=== PATIENT | male | born 1940 | race Caucasian/White ===

== ENCOUNTER 2017-06-25 13:07 | Emergency (ER) | payer MEDICARE ==
[2017-06-25 13:38] VITALS: BP 179/88; PULSE 60; RESP 16; TEMP 98.8
--- NOTE | 2017-06-25 14:55 | ED ---
General Adult HPI - General Chief complaint: Extremity Problem,Nontraumatic Stated complaint: pain in legs/groin Time Seen by Provider: 06/25/17 14:06 Source: patient, family, RN notes reviewed, old records reviewed Mode of arrival: wheelchair Limitations: no limitations - History of Present Illness Initial comments: This is a 76-year-old male the ER for evaluation of leg pain. Patient's concerned that he may of DVT. Patient complaining of right leg pain. No injury. No recent trauma or surgery. Patient states he is to recently thinks it may have had a DVT. He had severe pain and cramping is likely 2 nights ago, the patient has not returned and is currently without pain or complaints this time. No traumatic injury, patient's able to ambulate without difficulty - Related Data Home Medications Medication Instructions Recorded Confirmed Warfarin [Coumadin] 5 mg PO SUSA 11/26/13 06/25/17 Sotalol HCl [Sotalol] 80 mg PO DAILY 10/29/15 06/25/17 Warfarin Sodium [Warfarin Sodium] 3 mg PO MOTUWE 10/29/15 06/25/17 Warfarin Sodium [Warfarin Sodium] 4 mg PO THFR 10/29/15 06/25/17 Allergies Allergy/AdvReac Type Severity Reaction Status Date / Time No Known Allergies Allergy Verified 06/25/17 14:08 Review of Systems ROS Statement: Those systems with pertinent positive or pertinent negative responses have been documented in the HPI. ROS Other: All systems not noted in ROS Statement are negative. Past Medical History Past Medical History: Atrial Fibrillation Additional Past Medical History / Comment(s): Afib RVR in past-to have cardiac ablation at [facility] soon, recent hematuria-had cystoscopy at [facility] 10/26/15 and pt states his prostate "was worked on", had woodall catheter removed today in Dr. Adams's office, nephrolithiasis History of Any Multi-Drug Resistant Organisms: None Reported Past Surgical History: Ablation, Hernia Repair, Prostate Surgery Additional Past Surgical History / Comment(s): 10/26/15 Cystoscopy-prostate "was worked on". TURP 1998, bilateral inguinal hernia repairs, EGD/colonoscopy Past Anesthesia/Blood Transfusion Reactions: No Reported Reaction Past Psychological History: No Psychological Hx Reported Smoking Status: Former smoker Past Alcohol Use History: None Reported Past Drug Use History: None Reported - Past Family History Father Additional Family Medical History / Comment(s): Father at age 50 yrs of ruptured brain aneurysm. Mother Family Medical History: Cancer Additional Family Medical History / Comment(s): Mother at age 55yrs of lung cancer. She was a smoker. General Exam Limitations: no limitations General appearance: alert, in no apparent distress Head exam: Present: atraumatic, normocephalic, normal inspection Eye exam: Present: normal appearance, PERRL, EOMI. Absent: scleral icterus, conjunctival injection, periorbital swelling ENT exam: Present: normal exam, mucous membranes moist Neck exam: Present: normal inspection. Absent: tenderness, meningismus, lymphadenopathy Respiratory exam: Present: normal lung sounds bilaterally. Absent: respiratory distress, wheezes, rales, rhonchi, stridor Cardiovascular Exam: Present: regular rate, normal rhythm, normal heart sounds. Absent: systolic murmur, diastolic murmur, rubs, gallop, clicks GI/Abdominal exam: Present: soft, normal bowel sounds. Absent: distended, tenderness, guarding, rebound, rigid Extremities exam: Present: normal inspection, full ROM, normal capillary refill. Absent: tenderness, pedal edema, joint swelling, calf tenderness Back exam: Present: normal inspection Neurological exam: Present: alert, oriented X3, CN II-XII intact Psychiatric exam: Present: normal affect, normal mood Skin exam: Present: warm, dry, intact, normal color. Absent: rash Course Vital Signs 06/25/17 13:32 Temperature 98.8 F Pulse Rate 60 Respiratory 16 Rate Blood Pressure 179/88 O2 Sat by Pulse 98 Oximetry Medical Decision Making - Medical Decision Making 76 male the ER for evaluation of foot pain. Patient complaining of right foot pain and concern of DVT. NEGATIVE PATIENT CAN BE DISCHARGED HOME - Radiology Data Radiology results: report reviewed (Ultrasound negative for DVT), image reviewed Disposition Clinical Impression: Right leg pain Disposition: HOME SELF-CARE Condition: Good Instructions: Leg Pain (ED) Referrals: Kenny Rivera MD [Primary Care Provider] - 1-2 days
--- NOTE | 2017-06-25 15:24 | US ---
EXAMINATION TYPE: US venous doppler duplex LE DATE OF EXAM: 06/25/2017 2:51 PM COMPARISON: NONE CLINICAL HISTORY: Pain. Right calf pain and last week his left calf bothered him. Patient does have h /o dvt in right leg and is on 2 thinners SIDE PERFORMED: Bilateral TECHNIQUE: The lower extremity deep venous system is examined utilizing real time linear array sonog caro with graded compression, doppler sonography and color-flow sonography. VESSELS IMAGED: External Iliac Vein (EIV) Common Femoral Vein Deep Femoral Vein Greater Saphenous Vein * Femoral Vein Popliteal Vein Small Saphenous Vein * Proximal Calf Veins (* superficial vessels) Grayscale, color doppler, spectral doppler imaging performed of the deep veins of the lower extremiti es. There is normal flow, compressibility, vascular waveforms. Right Leg: Appears negative for DVT Left Leg: Appears negative for DVT IMPRESSION: No sonographic evidence of deep venous thrombosis within either lower extremity.
== END 2017-06-25 16:08 | disposition home or self-care (01) ==
LOC: EC 13:07
DX: M79.604 Pain in right leg (principal); M79.671 Pain in right foot; I48.91 Unspecified atrial fibrillation; Z87.891 Personal history of nicotine dependence; Z79.01 Long term (current) use of anticoagulants; Z79.899 Other long term (current) drug therapy
CPT/HCPCS: 93970; 99284

== ENCOUNTER 2019-08-27 14:18 | Inpatient (IN) | payer MEDICARE, OTHER ==
[2019-08-27 14:44] LABS: Glucose,Whole Blood 121 mg/dL (75-99)
[2019-08-27 14:51] LABS: Basophils % (A) 1 %; Eosinophils # (A) 0.1 k/uL (0-0.7); Eosinophils % (A) 1 %; HCT 46.2 % (39.0-53.0); HGB 14.8 gm/dL (13.0-17.5); Lymphocytes # (A) 0.7 k/uL (1.0-4.8); Lymphocytes % (A) 13 %; MCH 29.4 pg (25.0-35.0); MCHC 31.9 g/dL (31.0-37.0); MCV 92.2 fL (80.0-100.0); Mean Platelet Volume 9.1; Monocytes # (A) 0.4 k/uL (0-1.0); Monocytes % (A) 8 %; Neutrophils # (A) 4.3 k/uL (1.3-7.7); Neutrophils % (A) 76 %; Platelet Count 166 k/uL (150-450); RBC 5.01 m/uL (4.30-5.90); RDW 12.9 % (11.5-15.5); WBC 5.6 k/uL (3.8-10.6)
[2019-08-27 15:01] LABS: Albumin 4.8 g/dL (3.5-5.0); Calcium 9.7 mg/dL (8.4-10.2); Potassium 4.1 mmol/L (3.5-5.1); Total Bilirubin 1.1 mg/dL (0.2-1.3); Total Protein 8.4 g/dL (6.3-8.2)
[2019-08-27 15:02] LABS: Appearance,Urine Clear (Clear); Bacteria,Urine Rare /hpf; Bilirubin,Urine Negative (Negative); Blood,Urine Negative (Negative); Color,Urine Yellow; Glucose,Urine (UA) Negative (Negative); Hyaline Casts,Urine 3 /lpf (0-2); Ketones,Urine Trace (Negative); Leukocyte Esterase,Urine Large (Negative); Mucus,Urine Rare /hpf; Nitrite,Urine Negative (Negative); Protein,Urine Trace (Negative); RBC,Urine 2 /hpf (0-5); Specific Gravity,Urine 1.023 (1.001-1.035); Squamous Epithelial Cell,Urine <1 /hpf (0-4); Urobilinogen,Urine <2.0 mg/dL (<2.0); WBC,Urine 21 /hpf (0-5)
[2019-08-27 15:06] LABS: Partial Thromboplastin Time 23.8 sec (22.0-30.0)
[2019-08-27 15:09] LABS: Amphetamine Screen,Urine Not Detected (NotDetected); Barbiturate Screen,Urine Not Detected (NotDetected); Benzodiazepines Screen,Urine Not Detected (NotDetected); Cocaine Screen,Urine Not Detected (NotDetected); Methadone Screen, Urine Not Detected (NotDetected); Opiate Screen,Urine Not Detected (NotDetected); Oxycodone Screen, Urine Not Detected (NotDetected); Phencyclidine Screen,Urine Not Detected (NotDetected); Tricyclic Antidepressant,Urine Not Detected (NotDetected); Urn Cannabinoid Scrn Not Detected (NotDetected)
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
--- NOTE | 2019-08-27 15:45 | CT ---
EXAMINATION TYPE: CT brain wo con DATE OF EXAM: 08/27/2019 COMPARISON: None INDICATION: ams DLP: 1098.4 mGycm, Automated exposure control for dose reduction was used. CONTRAST: None CT of the brain is performed utilizing 3 mm thick sections through the posterior fossa and 3 mm thick sections through the remaining calvarium. Study is performed within 24 hours of arrival to the hosp [facility]. No abnormal hyperdensity is present to suggest an acute intracranial hemorrhage. No mass lesion is evident. No acute infarcts are evident. Periventricular white matter hypodensity is present, likely on the bas is of chronic white matter ischemic change. This is greater in the occipital regions. Ventricles and sulci are mildly prominent for the patient age. Paranasal sinuses and mastoid air cells within the [id number] are clear. IMPRESSIONS: 1. Chronic appearing periventricular white matter ischemic type changes.
--- NOTE | 2019-08-27 15:49 | XR ---
EXAMINATION TYPE: XR chest 2V DATE OF EXAM: 08/27/2019 COMPARISON: 10/29/2015 INDICATION: Altered mental status confusion TECHNIQUE: Frontal and lateral views of the chest are obtained. FINDINGS: The heart size is normal. The pulmonary vasculature is normal. Very subtle infiltrate may be at the right base lungs are otherwise clear. Atypical pneumonia should be considered. IMPRESSION: 1. Minimal infiltrate right base. Correlate for atypical pneumonia.
[2019-08-27] MEDS ORDERED: AZITHROMYCIN 500 MG TAB PO STA (15:52)
[2019-08-27] MEDS ORDERED: cefTRIAXone IN SWFI 1,000 MG/10 ML SYRINGE IVP STA (15:55)
[2019-08-27] MEDS ORDERED: NALOXONE 0.4 MG/ML 1 ML VIAL IV PRN (15:57)
[2019-08-27] MEDS ORDERED: ACETAMINOPHEN TAB 325 MG TAB PO PRN (15:57)
[2019-08-27] MEDS: SODIUM CHLORIDE 0.9% 1,000 ML IV SCH (16:27)
[2019-08-27] MEDS ORDERED: LORazepam 2 MG/ML INJ IV STA (20:02)
[2019-08-27 21:08] LABS: Alcohol <10 mg/dL; C Reactive Protein <5.0 mg/L (<10.0)
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
[2019-08-28 01:56] LABS: Folate, Serum 7.6 ng/mL
[2019-08-28] MEDS: SODIUM CHLORIDE 0.9% 1,000 ML IV SCH (10:28)
--- NOTE | 2019-08-28 12:01 | MR ---
EXAMINATION TYPE: MR brain wo/w con DATE OF EXAM: 08/28/2019 COMPARISON: CT brain 08/27/2019 HISTORY: AMS CONTRAST: Performed utilizing 7 mL intravenous Gadavist gadolinium contrast. TECHNIQUE: Multiplanar, multiecho imaging on a 3.0 Lynette magnet is performed through the brain. Stud y is performed within 24 hours of arrival to the hospital. The craniovertebral junction is normal. The pituitary is normal. Diffusion-weighted imaging is performed. On diffusion-weighted imaging there is a focus of increased signal within the medial left occipital lobe. Series 305 image 120. This area is hyperintense on T1 and T2-weighted sequences. This appears well-circumscribed and measur es 0.8 x 1.2 cm. This may has some vague enhancement on postcontrast imaging consider cavernous angio ma within the differential. Hemosiderin ring appears to surround this area. This could be some subacu te hemorrhage. This area appears hypointense on the CT examination, similar to microvascular ischemic change adjacent. There is periventricular white matter hypointensity greater within the occipital regions but extendin g through the periventricular white matter and into the frontal lobes. Microvascular ischemic changes favored differential. Ventricles and sulci are prominent for the patient age. IMPRESSIONS: 1. Focal area of hyperintensity on T1 and T2-weighted sequences with some mild enhancement and suspec marni hemosiderin ring. Cavernous angioma is favored within the differential. Subacute hemorrhage shoul d be considered within the differential. No significant edema is adjacent suggesting asked to be less likely. 2. Moderately extensive atrophy with chronic appearing periventricular white matter ischemic type eunice nges.
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
--- NOTE | 2019-08-28 15:45 | CT ---
EXAMINATION TYPE: CT angio head neck DATE OF EXAM: 08/28/2019 COMPARISON: MRI 08/28/2019 HISTORY: 78-year-old male suspected CVA, ams TECHNIQUE: Contiguous axial scanning of the head and neck performed with IV Contrast, patient injecte d with 65cc mL of Isovue 370. Coronal/sagittal MIP reconstructions performed. 3-D reconstructions gen erated on a dedicated workstation. CT DLP: 396.5 mGycm Automated exposure control for dose reduction was used. FINDINGS: NECK: Dominant right vertebral artery. Aberrant direct takeoff of the left vertebral artery directly from t he aortic arch. Otherwise, both vertebral arteries are patent at their origin and throughout the cour se. The right common and internal carotid arteries are patent. The left common and internal carotid arteries are patent. Mild emphysematous change, mild wall thickening, biapical pleural parenchymal scarring, and some subt le centrilobular nodularity in the visualized upper lungs, possible chronic bronchitis and respirator y bronchiolitis. HEAD: The V4 segment left vertebral artery after the PICA takeoff becomes even more hypoplastic otherwise, vertebral and basilar arteries as well as the remainder of the posterior circulation are patent. Mild atherosclerotic calcifications within the carotid siphons. Internal carotid arteries and the rem ainder of the anterior circulation are patent. No aneurysmal change. Abnormal area of restricted diffusion within the left occipital lobe shows no abnormal vasculature. IMPRESSION: 1. NECK: DOMINANT RIGHT VERTEBRAL ARTERY. ABERRANT DIRECT TAKEOFF OF THE LEFT VERTEBRAL ARTERY DIRECT LY FROM THE AORTIC ARCH. WIDELY PATENT VERTEBRAL AND CAROTID ARTERIES OF THE NECK. 2. HEAD: AGAIN, A DOMINANT RIGHT VERTEBRAL ARTERY. MILD ATHEROSCLEROTIC CALCIFICATIONS OF THE CAROTID SIPHONS. NO LARGE VESSEL INTRACRANIAL ARTERIAL OCCLUSION, SIGNIFICANT STENOSIS, OR ANEURYSMAL CHANGE IS SEEN.
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
--- NOTE | 2019-08-28 17:35 | HP ---
HISTORY AND PHYSICAL CHIEF COMPLAINT: Acute mental status changes. HISTORY OF PRESENT ILLNESS: This is another admission for this 78-year-old white male who has been in relatively good health. He does have a history of atrial fibrillation. He was apparently brought in after he began to exhibit very bizarre, aggressive and hostile behavior toward his . He was brought in for admission and further neurologic workup, including a psych consult. He has never had episodes like this in the past with I have been aware of. He has been having some headaches. REVIEW OF SYSTEMS: He denies any visual changes, problems with hearing, shortness of breath, cough, hemoptysis, chest pain, orthopnea, PND, abdominal pain, nausea, vomiting, diarrhea, melena, hematochezia, renal failure, hematuria, dysuria, urgency, diabetes, etc. Past medical history, family history, and personal and social histories reveal he is NOT ALLERGIC TO ANY MEDICATION. His medications can be found in the MAR section of his medical record. Surgically he has had a prostate procedure. He used to smoke but does not any longer. He does not drink. PHYSICAL EXAMINATION: Blood pressure 120/76 with a pulse 60 and regular, respirations 14. He is afebrile. In general he appeared to be well developed, well nourished, in no acute distress. He seemed comfortable and happy. Head, ears, eyes, nose, mouth and throat were normal. Neck veins were not distended. Thyroid was not enlarged. Chest was clear. Cardiac exam was normal except for atrial fibrillation. Abdomen was soft and nontender. Extremities were normal. Neurologically he was intact. IMPRESSION: 1. Acute mental status changes with delirium and aggressive behavior. 2. Headaches. PLAN: 1. Bed rest. 2. IV fluids. 3. Psychiatric consult. 4. MRI. MMODL / IJN: [id number] /
--- NOTE | 2019-08-28 17:57 | PN ---
PROGRESS NOTE DATE OF SERVICE: 08/28/2019. CHIEF COMPLAINT: Mental status changes. HISTORY OF PRESENT ILLNESS: This gentleman feels fine today. He is still complaining of a headache. This does sound like this may be psychiatric. He is relating that his has two boyfriends. PHYSICAL EXAMINATION: Head ears, eyes, nose, mouth and throat are normal. Cranial nerves are intact. Chest is clear. Cardiac exam is normal. Abdomen is soft, nontender. IMPRESSION: 1. Mental status changes. 2. Delirium. 3. Headache. 4. Acute psychosis. 5. Rule out intracranial lesion. PLAN: 1. Continue to follow neurologically. 2. Psych consult. 3. MRI. MMODL / IJN: [id number] /
[2019-08-28] MEDS: lamoTRIgine 25 MG TAB PO SCH (19:53)
[2019-08-28] MEDS: DONEPEZIL 5 MG TAB PO SCH (22:05)
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
[2019-08-29] MEDS: lamoTRIgine 25 MG TAB PO SCH (07:38)
--- NOTE | 2019-08-29 09:31 | ECHOF ---
Referral Reason:HX FL, admitted for AMS MEASUREMENTS -------- HEIGHT: 165.1 cm WEIGHT: 72.1 kg BP: RVIDd: 3.0 cm (< 3.3) IVSd: 1.2 cm (0.6 - 1.1) LVIDd: 3.5 cm (3.9 - 5.3) LVPWd: 1.4 cm (0.6 - 1.1) IVSs: 1.9 cm LVIDs: 1.5 cm LVPWs: 1.7 cm Ao Diam: 2.7 cm (2.0 - 3.7) AV Cusp: 1.2 cm (1.5 - 2.6) LA Diam: 3.6 cm (2.7 - 3.8) MV EXCURSION: 16.009 mm (> 18.000) MV EF SLOPE: 30 mm/s (70 - 150) EPSS: 0.4 cm MV E Renny: 0.53 m/s MV DecT: 203 ms MV A Renny: 0.53 m/s MV E/A Ratio: 1.00 AV maxP.63 mmHg AV meanP.82 mmHg RAP: 5.00 mmHg RVSP: 22.05 mmHg FINDINGS -------- Sinus rhythm. This was a technically adequate study. The left ventricular size is normal. There is mild concentric left ventricular hypertrophy. Overa ll left ventricular systolic function is normal with, an EF between 55 - 60 %. The right ventricle is normal in size. The left atrial size is normal. The right atrial size is normal. Aortic valve is trileaflet and is severely thickened. There is severe aortic stenosis present. Pe ak/mean gradient across the Aortic Valve is 71.63mmHg / 39.82mmHg. The mitral valve is normal. There is trace mitral regurgitation. The tricuspid valve appears structurally normal. Trace tricuspid regurgitation present. Right ismael tricular systolic pressure is normal at < 35 mmHg. There is no pulmonic regurgitation present. The aortic root size is normal. Normal inferior vena cava with normal inspiratory collapse consistent with estimated right atrial pre ssure of 5 mmHg. There is no pericardial effusion. CONCLUSIONS -------- 1. Sinus rhythm. 2. This was a technically adequate study. 3. The left ventricular size is normal. 4. There is mild concentric left ventricular hypertrophy. 5. Overall left ventricular systolic function is normal with, an EF between 55 - 60 %. 6. The right ventricle is normal in size. 7. The left atrial size is normal. 8. The right atrial size is normal. 9. Aortic valve is trileaflet and is severely thickened. 10. There is severe aortic stenosis present. 11. Peak/mean gradient across the Aortic Valve is 71.63mmHg / 39.82mmHg. 12. The mitral valve is normal. 13. There is trace mitral regurgitation. 14. The tricuspid valve appears structurally normal. 15. Trace tricuspid regurgitation present. 16. Right ventricular systolic pressure is normal at < 35 mmHg. 17. There is no pulmonic regurgitation present. 18. The aortic root size is normal. 19. Normal inferior vena cava with normal inspiratory collapse consistent with estimated right atrial pressure of 5 mmHg. 20. There is no pericardial effusion. BASE REMOVER: Ashwini Loera RDCS
[2019-08-29] MEDS: SODIUM CHLORIDE 0.9% 1,000 ML IV SCH (15:47)
[2019-08-29 15:51] LABS: Glucose,CSF 57 mg/dL (40-70); Total Protein,CSF 59 mg/dL (12-60)
[2019-08-29 16:32] LABS: Appearance,CSF Blood Tinged; CSF Tube Number 1; CSF Tube Volume 2
[2019-08-29 16:33] LABS: Nucleated Cells, CSF 25 u/L (0-5); Red Blood Cell,CSF 19100 u/L (0-10)
[2019-08-29 16:34] LABS: Red Blood Cell, CSF Crenated 0 %; Red Blood Cell, CSF Fresh 100 %
[2019-08-29 16:36] LABS: CSF Tube Number 4; CSF Tube Volume 2
[2019-08-29 16:37] LABS: Nucleated Cells, CSF 11 u/L (0-5); Red Blood Cell,CSF 3325 u/L (0-10)
[2019-08-29 16:41] LABS: Mononuclear WBC,CSF 31 %; Polynuclear WBC,CSF 69 %
[2019-08-29 16:43] LABS: Red Blood Cell, CSF Crenated 1 %; Red Blood Cell, CSF Fresh 99 %
[2019-08-29 16:45] LABS: Eosinophils,CSF 2 %; Mononuclear WBC,CSF 14 %; Polynuclear WBC,CSF 84 %
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
[2019-08-29] MEDS: DONEPEZIL 5 MG TAB PO SCH (21:19)
[2019-08-30] MEDS: lamoTRIgine 25 MG TAB PO SCH (10:09)
[2019-08-30 11:06] LABS: VDRL, Qualitative CSF Nonreactive (Nonreactive)
[2019-08-30] MEDS: ASPIRIN 81 MG PO SCH ×2 (11:46→11:50)
--- NOTE | 2019-08-30 14:14 | MR ---
EXAMINATION TYPE: MR angio head wo con DATE OF EXAM: 08/30/2019 COMPARISON: MRI of the brain dated 08/28/[address] [employer] head and neck dated 08/28/[address] brain dated 08/27/2019. HISTORY: Acute delirium, assess cavernous angioma TECHNIQUE: Time of flight images focusing on the [place] of [place] were performed without contrast. FINDINGS: There is a 9 mm focus of hyperintensity in the medial left occipital lobe. On the MRA this is isolated with no feeding arteries or venous structures are appreciated. There is dominance of the right vertebral artery again noted. Mild narrowing of the cavernous portion s of the internal carotid arteries, nonhemodynamically significant. No major arterial vascular occlus ion or dissection in the head. A tiny 2 mm aneurysm is seen from the M1 segment on the right on image 106. This appears saccular. No posterior communicating arteries aren't definitively seen. The anteri or commuting artery is also not definitely seen and therefore [place] of [place] does not appear intact . IMPRESSION: 1. 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 2. Hyperdense focus of the left occipital lobe does not demonstrate any clear communication with othe r venous or arterial structures on MRA nor on CTA of 08/28/2019. Considerations are for focus of intra cranial hemorrhage with underlying ischemia given the restricted diffusion on the prior MR, hemorrhag ic or hyperintense (melanoma) metastatic focus, partially thrombosed aneurysm, or small cystic neopla sm.
--- NOTE | 2019-08-30 16:22 | FL ---
PROCEDURE: Lumbar puncture. DATE: 08/29/2019 CLINICAL HISTORY: 78 year-old male acute mental status changes, history of stroke COMPLICATIONS: None Fluoroscopy time: 22 Total images: 1 SEDATION: Per nursing personnel. The patient and the patient's vital signs were monitored by qualified [facility] radiology personnel. TECHNIQUE: The procedure and potential risks were explained to patient and an informed consent was obtained with teach back. Site and side was verified. A time out was performed. The patient was placed prone on the fluoroscopy table and the L3-L4 level was localized and the skin was marked and was prepped and draped in the usual sterile fashion. Lidocaine was used for local anesthesia. Utilizing fluoroscopic guidance a 20-gauge spinal needle was placed through the skin and into the subarachnoid space. Approximately 9 mL of initially blood-tinged and then subsequently clear, colorless cerebral spinal fluid was obtained. The patient tolerated the procedure well and was sent back to the inpatient room in satisfactory cond ition. The fluid was sent to the lab for analysis. The estimated blood loss was minimal. The patient's condition was unchanged following the procedure. IMPRESSION: Successful accumulation of 9 mL of CSF. Initial iatrogenic bloody tap with subsequent clearing of flu id. Laboratory analysis pending.
--- NOTE | 2019-08-30 17:30 | PN ---
PROGRESS NOTE CHIEF COMPLAINT: Agitation and delirium with confusion. HISTORY OF PRESENT ILLNESS: This gentleman remains the same. He seems to be cognitively intact, but then he starts confabulating about having multiple fractures in his right hand and continues to present bizarre patterns of behavior. This may be related to dementia, but other potential medical causes need to continue to be considered. He has been seen by Neurology and Psychiatry and he has been started on medications. Discharge planning is in place. I am not sure if this gentleman will be able to return home under the circumstances. PHYSICAL EXAMINATION: He is awake and alert. Vital signs are normal. Head, ears, eyes, nose, mouth, and throat are normal and the chest is clear and the cardiac exam is normal. IMPRESSION: 1. Mental status changes. 2. Delirium. 3. Possible dementia. 4. Rule out organic OPENING MACHINE CLEANER disease. RODRIGUEZ / GISELE: [id number] /
[2019-08-30] MEDS ORDERED: SODIUM CHLORIDE 0.9% 500 ML 500 ML IV ONE (17:49)
[2019-08-30] MEDS: SODIUM CHLORIDE 0.9% 1,000 ML IV SCH (17:54)
[2019-08-30] MEDS: DEXTROSE 5%-0.45% NACL 1,000 ML IV SCH (18:52)
[2019-08-30 19:43] LABS: Basophils % (A) 0 %; Eosinophils # (A) 0.1 k/uL (0-0.7); Eosinophils % (A) 1 %; HCT 44.7 % (39.0-53.0); HGB 14.3 gm/dL (13.0-17.5); Lymphocytes # (A) 0.9 k/uL (1.0-4.8); Lymphocytes % (A) 14 %; MCHC 32.1 g/dL (31.0-37.0); MCV 93.5 fL (80.0-100.0); Mean Platelet Volume 8.9; Monocytes # (A) 0.5 k/uL (0-1.0); Monocytes % (A) 8 %; Neutrophils # (A) 4.7 k/uL (1.3-7.7); Neutrophils % (A) 75 %; Platelet Count 165 k/uL (150-450); RBC 4.78 m/uL (4.30-5.90); RDW 12.9 % (11.5-15.5); WBC 6.3 k/uL (3.8-10.6)
[2019-08-30] MEDS: DONEPEZIL 5 MG TAB PO SCH (20:05)
[2019-08-30 20:10] LABS: African American GFR (CKD) >90 (>60 ml/min/1.73 sqM); Anion Gap 11 mmol/L; Blood Urea Nitrogen 17 mg/dL (9-20); Carbon Dioxide 22 mmol/L (22-30); Chloride 106 mmol/L (98-107); Glucose 118 mg/dL (74-99); Non-African American GFR(CKD) 81 (>60 ml/min/1.73 sqM); Potassium 3.9 mmol/L (3.5-5.1); Sodium 139 mmol/L (137-145)
[2019-08-30 20:11] LABS: ALT 14 U/L (4-49); AST 20 U/L (17-59); Albumin 4.1 g/dL (3.5-5.0); Alkaline Phosphatase 65 U/L (38-126); Calcium 9.2 mg/dL (8.4-10.2); Total Bilirubin 0.9 mg/dL (0.2-1.3); Total Protein 7.5 g/dL (6.3-8.2)
[2019-08-30 21:11] LABS: Appearance,Urine Clear (Clear); Bilirubin,Urine Negative (Negative); Blood,Urine Negative (Negative); Color,Urine Yellow; Glucose,Urine (UA) Negative (Negative); Hyaline Casts,Urine 4 /lpf (0-2); Ketones,Urine 1+ (Negative); Leukocyte Esterase,Urine Trace (Negative); Mucus,Urine Occasional /hpf; Nitrite,Urine Negative (Negative); Protein,Urine Trace (Negative); RBC,Urine 2 /hpf (0-5); Specific Gravity,Urine 1.022 (1.001-1.035); Squamous Epithelial Cell,Urine 1 /hpf (0-4); Urobilinogen,Urine <2.0 mg/dL (<2.0); WBC,Urine 7 /hpf (0-5)
[2019-08-31] MEDS: DEXTROSE 5%-0.45% NACL 1,000 ML IV SCH ×3 (02:15→20:38)
[2019-08-31] MEDS: ASPIRIN 81 MG PO SCH (09:13)
[2019-08-31] MEDS: lamoTRIgine 25 MG TAB PO SCH (09:13)
[2019-08-31 10:44] LABS: Appearance,CSF Blood Tinged
--- NOTE | 2019-08-31 15:37 | PN ---
PROGRESS NOTE CHIEF COMPLAINT: Confusion and mental status changes. HISTORY OF PRESENT ILLNESS: This gentleman is awake and alert. He remains very confused. He is having no headaches, neurologic focal signs or symptoms, etc. Yesterday he had a history of voiding very little and only had 300 mL in the bladder. IV was started. He was given a bolus of fluids and will be watching his urinary output. Because of his confusion and delirium, it is not clear as to whether or not he will be going home. Vice President Client Services is working on discharge arrangements. MMODL / IJN: [id number] /
[2019-08-31] MEDS: SODIUM CHLORIDE 0.9% 1,000 ML IV SCH (19:18)
[2019-08-31] MEDS: DONEPEZIL 5 MG TAB PO SCH (20:36)
[2019-09-01] MEDS: DEXTROSE 5%-0.45% NACL 1,000 ML IV SCH ×2 (01:32→19:17)
[2019-09-01] MEDS: ASPIRIN 81 MG PO SCH (08:35)
[2019-09-01] MEDS: lamoTRIgine 25 MG TAB PO SCH (08:35)
[2019-09-01] MEDS: SODIUM CHLORIDE 0.9% 1,000 ML IV SCH (19:17)
[2019-09-01] MEDS: DONEPEZIL 5 MG TAB PO SCH ×2 (20:42→23:52)
[2019-09-02] MEDS: DEXTROSE 5%-0.45% NACL 1,000 ML IV SCH ×2 (03:06→08:03)
[2019-09-02] MEDS: lamoTRIgine 25 MG TAB PO SCH (07:59)
[2019-09-02] MEDS: ASPIRIN 81 MG PO SCH (07:59)
[2019-09-02 14:29] VITALS: BP 90/76; PULSE 76; RESP 17; TEMP 97.9
--- NOTE | 2019-09-02 16:41 | PN ---
PROGRESS NOTE DATE OF SERVICE: 09/01/2019 CHIEF COMPLAINT: Mental status changes and delirium. HISTORY OF PRESENT ILLNESS: This gentleman is about the same. He is awake and alert. Vital signs are normal. However, he remains very confused. It is felt that he can be discharged tomorrow. It is not clear if he will be going to an extended-care facility or home. PHYSICAL EXAMINATION: Vital signs are normal. Chest is clear. Cardiac exam is normal. Abdomen is soft, nontender. He is awake and alert, but inappropriate. IMPRESSION: 1. Delirium. 2. Dementia. PLAN: Probably discharge tomorrow. MMODL / IJN: [id number] /
--- NOTE | 2019-09-02 21:02 | DS ---
DISCHARGE SUMMARY CHIEF COMPLAINT: Mental status changes, confusion and agitation. HISTORY OF PRESENT ILLNESS AND PHYSICAL EXAMINATION: Details of this man's history and physical can be found in the initial workup. LABORATORY STUDIES: While he was in the hospital he had laboratory studies, details of which can be found in the laboratory section of his chart. COURSE IN THE HOSPITAL: After admission he was placed on bedrest, started on intravenous fluids, and he was seen in consultation by Neurology and Psychiatry. His confusion and paranoid delusions persisted throughout his hospitalization and studies were essentially negative. It was felt that this was largely related to dementia. Discharge planning was just put into place and the patient's decided that she would take him home and try to manage him at home. He will be discharged home on September 01 and he will be followed up by [facility] as well as our office. FINAL DIAGNOSES: 1. Acute mental status changes. 2. Delirium. 3. Dementia. OPERATIONS: None. CONSULTATIONS: 1. Neurology. 2. Psychiatry. He is improved. MMXIOMY / GISELE: [id number] /
== END 2019-09-02 15:03 | disposition home health service (06) | DRG 884 ==
LOC: EC 14:18 → 4SSUR 15:57
PROVIDERS: ADMIT Family Medicine; ATTEND Family Medicine
PROC: 009U3ZX Drainage of Spinal Canal, Percutaneous Approach, Diagnostic (ICD-10-PCS; principal; 2019-08-30)
DX: F01.51 Vascular dementia, unspecified severity, with behavioral disturbance (principal); N39.0 Urinary tract infection, site not specified; R47.01 Aphasia; F23 Brief psychotic disorder; Z91.83 Wandering in diseases classified elsewhere; Z11.59 Encounter for screening for other viral diseases; I48.91 Unspecified atrial fibrillation; E78.00 Pure hypercholesterolemia, unspecified; F60.0 Paranoid personality disorder; Z79.01 Long term (current) use of anticoagulants; Z80.1 Family history of malignant neoplasm of trachea, bronchus and lung; Z86.73 Personal history of transient ischemic attack (TIA), and cerebral infarction without residual deficits; Z87.442 Personal history of urinary calculi; Z87.891 Personal history of nicotine dependence; R51 Headache; R45.1 Restlessness and agitation
CPT/HCPCS: 36415; 62328; 70450; 70496; 70498; 70544; 70553; 71046; 80053; 80306; 80320; 81001; 82140; 82607; 82746; 82945; 83873; 84157; 85025; 85610; 85652; 85730; 86140; 86592; 87040; 87070; 87086; 87102; 87116; 87205; 87206; 87327; 87529; 87635; 88108; 89050; 93005; 93306; 95819; 96374; 99285

== ENCOUNTER 2020-04-03 14:23 | Emergency (ER) | payer MEDICARE ==
[2020-04-03 15:18] LABS: Basophils % (A) 0 %; Eosinophils # (A) 0.1 k/uL (0-0.7); Eosinophils % (A) 2 %; HCT 42.1 % (39.0-53.0); HGB 13.5 gm/dL (13.0-17.5); Lymphocytes # (A) 1.2 k/uL (1.0-4.8); Lymphocytes % (A) 21 %; MCH 29.2 pg (25.0-35.0); MCV 91.2 fL (80.0-100.0); Mean Platelet Volume 9.1; Monocytes # (A) 0.5 k/uL (0-1.0); Monocytes % (A) 8 %; Neutrophils % (A) 67 %; Platelet Count 176 k/uL (150-450); RBC 4.61 m/uL (4.30-5.90); RDW 12.7 % (11.5-15.5)
--- NOTE | 2020-04-03 15:19 | ED ---
Male Urogenital HPI - General Chief complaint: Urogenital Stated complaint: Blood in urine Time Seen by Provider: 04/03/20 14:49 Source: patient, family Mode of arrival: ambulatory Limitations: no limitations - History of Present Illness Initial comments: Patient is a 79-year-old male, with history of dementia, A. fib, presenting to the emergency Department with complaints of hematuria for the past 2-3 days. Patient does have slight dementia, is present in the room and is helping with history. He has had issues with his prostate in the past, could not elaborate. They have seen a urologist, Dr. Adams in the past, but its been years. Patient denies any abdominal pain, no nausea or vomiting. He denies any fever or chills. He states the blood seems to be getting worse over the past few days. He has had history of UTIs in the past. He does admit to some mild left groin pain which is intermittent however states he has been dealing with this pain on and off for years. They have never found a cause of it. He denies any chest pain, shortness of breath, cough. There are no further complaints at this time. Upon arrival to the ER, his vital signs are stable. - Related Data Previous Rx's Medication Instructions Recorded Cephalexin [Keflex] 500 mg PO Q6HR 7 Days #28 cap 04/03/20 Allergies Allergy/AdvReac Type Severity Reaction Status Date / Time No Known Allergies Allergy Verified 04/03/20 15:35 Review of Systems ROS Statement: Those systems with pertinent positive or pertinent negative responses have been documented in the HPI. ROS Other: All systems not noted in ROS Statement are negative. Past Medical History Past Medical History: Atrial Fibrillation, CVA/TIA Additional Past Medical History / Comment(s): Afib RVR in past-to have cardiac ablation at [facility] soon, History of Any Multi-Drug Resistant Organisms: None Reported Past Surgical History: Ablation, Hernia Repair, Prostate Surgery Additional Past Surgical History / Comment(s): 10/26/15 Cystoscopy-prostate "was worked on". TURP 1998, bilateral inguinal hernia repairs, EGD/colonoscopy Past Anesthesia/Blood Transfusion Reactions: No Reported Reaction Past Psychological History: No Psychological Hx Reported Past Alcohol Use History: None Reported Past Drug Use History: None Reported - Past Family History Father Additional Family Medical History / Comment(s): Father at age 50 yrs of ruptured brain aneurysm. Mother Family Medical History: Cancer Additional Family Medical History / Comment(s): Mother at age 55yrs of lung cancer. She was a smoker. General Exam - General Exam Comments Initial Comments: GENERAL: Patient is well-developed and well-nourished. Patient is nontoxic and in no acute distress. HEAD: Atraumatic, normocephalic. EYES: Pupils equal round and reactive to light, extraocular movements intact, sclera anicteric, conjunctiva are normal. Eyelids were unremarkable. ENT: TMs normal, nares patent, oropharynx clear without exudates. Moist mucous membranes. NECK: Normal range of motion, supple without lymphadenopathy or JVD. LUNGS: Unlabored respirations. Breath sounds clear to auscultation bilaterally and equal. No wheezes rales or rhonchi. HEART: Regular rate and rhythm without murmurs, rubs or gallops. ABDOMEN: Soft, nontender, normoactive bowel sounds. No guarding, no rebound. No masses appreciated. : Deferred MUSCULOSKELETAL: Normal extremities with adequate strength and normal range of motion, no pitting or edema. No clubbing or cyanosis. NEUROLOGICAL: Patient is alert and oriented x 3. Motor and sensory are also intact. Cranial nerves II through XII grossly intact. Symmetrical smile. Normal speech, normal gait. PSYCH: Normal mood, normal affect. SKIN: Warm, Dry, normal turgor, no rashes or lesions noted. Limitations: no limitations Course Vital Signs 04/03/20 04/03/20 04/03/20 14:27 15:58 16:25 Temperature 97.9 F 98.7 F Pulse Rate 64 61 60 Respiratory 16 18 18 Rate Blood Pressure 122/74 132/77 134/75 O2 Sat by Pulse 99 95 96 Oximetry Medical Decision Making - Medical Decision Making Patient 79-year-old male with history of dementia, presenting with hematuria 2- 3 days. No abdominal pain, no fevers. His vital signs are stable upon arrival. CBC and CMP are unremarkable, urine does show large amount of blood, 25 wbc's, urine culture is pending. I discussed with patient given his hematuria I will start him on Keflex and he needs to follow up with his urologist. Patient is in agreement with this plan of care. He is stable for discharge. Return parameters were discussed with the patient and his and they both verbalized understanding. Case discussed with Dr. Rodriguez. - Lab Data Result diagrams: 04/03/20 15:08 04/03/20 15:08 Lab Results 04/03/20 04/03/20 04/03/20 Range/Units 15:08 15:08 15:08 WBC 6.0 (3.8-10.6) k/uL RBC 4.61 (4.30-5.90) m/uL Hgb 13.5 (13.0-17.5) gm/dL Hct 42.1 (39.0-53.0) % MCV 91.2 (80.0-100.0) fL MCH 29.2 (25.0-35.0) pg MCHC 32.0 (31.0-37.0) g/dL RDW 12.7 (11.5-15.5) % Plt Count 176 (150-450) k/uL MPV 9.1 Neutrophils % 67 % Lymphocytes % 21 % Monocytes % 8 % Eosinophils % 2 % Basophils % 0 % Neutrophils # 4.0 (1.3-7.7) k/uL Lymphocytes # 1.2 (1.0-4.8) k/uL Monocytes # 0.5 (0-1.0) k/uL Eosinophils # 0.1 (0-0.7) k/uL Basophils # 0.0 (0-0.2) k/uL Sodium 141 (137-145) mmol/L Potassium 4.5 (3.5-5.1) mmol/L Chloride 111 H (98-107) mmol/L Carbon Dioxide 23 (22-30) mmol/L Anion Gap 7 mmol/L BUN 17 (9-20) mg/dL Creatinine 1.11 (0.66-1.25) mg/dL Est GFR (CKD-EPI)AfAm 73 (>60 ml/min/1.73 sqM) Est GFR (CKD-EPI)NonAf 63 (>60 ml/min/1.73 sqM) Glucose 92 (74-99) mg/dL Calcium 9.2 (8.4-10.2) mg/dL Total Bilirubin 0.9 (0.2-1.3) mg/dL AST 28 (17-59) U/L ALT 15 (4-49) U/L Alkaline Phosphatase 66 (38-126) U/L Total Protein 7.5 (6.3-8.2) g/dL Albumin 4.0 (3.5-5.0) g/dL Urine Color Dark Brown Urine Appearance Turbid (Clear) Urine pH 5.5 (5.0-8.0) Ur Specific [place] 1.022 (1.001-1.035) Urine Protein 2+ H (Negative) Urine Glucose (UA) Negative (Negative) Urine Ketones Negative (Negative) Urine Blood Large H (Negative) Urine Nitrite Negative (Negative) Urine Bilirubin Negative (Negative) Urine Urobilinogen <2.0 (<2.0) mg/dL Ur Leukocyte Esterase Trace H (Negative) Urine RBC >182 H (0-5) /hpf Urine WBC 25 H (0-5) /hpf Ur Squamous Epith Cells 5 H (0-4) /hpf Urine Mucus Many H (None) /hpf Disposition Clinical Impression: Hematuria, UTI (urinary tract infection) Disposition: HOME SELF-CARE Condition: Stable Instructions (If sedation given, give patient instructions): Hematuria (ED) Additional Instructions: Please return to the Emergency Department if symptoms worsen or any other concerns. Take antibiotic as prescribed. Continue to drink lots of water. Follow up with urology as discussed. Prescriptions: Cephalexin [Keflex] 500 mg PO Q6HR 7 Days #28 cap Is patient prescribed a controlled substance at d/c from ED?: No Referrals: Kenny Rivera MD [Primary Care Provider] - 1-2 days Emanuel Adams MD [STAFF PHYSICIAN] - 1-2 days
[2020-04-03 15:35] LABS: Calcium 9.2 mg/dL (8.4-10.2); Total Bilirubin 0.9 mg/dL (0.2-1.3); Total Protein 7.5 g/dL (6.3-8.2)
[2020-04-03 15:37] LABS: Appearance,Urine Turbid (Clear); Bilirubin,Urine Negative (Negative); Blood,Urine Large (Negative); Color,Urine Dark Brown; Glucose,Urine (UA) Negative (Negative); Ketones,Urine Negative (Negative); Leukocyte Esterase,Urine Trace (Negative); Mucus,Urine Many /hpf; Nitrite,Urine Negative (Negative); PH, Urine 5.5 (5.0-8.0); Protein,Urine 2+ (Negative); RBC,Urine >182 /hpf (0-5); Specific Gravity,Urine 1.022 (1.001-1.035); Squamous Epithelial Cell,Urine 5 /hpf (0-4); Urobilinogen,Urine <2.0 mg/dL (<2.0); WBC,Urine 25 /hpf (0-5)
[2020-04-03 15:44] LABS: Potassium 4.5 mmol/L (3.5-5.1)
[2020-04-03 16:01] VITALS: RESP 18
[2020-04-03 16:27] VITALS: BP 134/75; PULSE 60; TEMP 98.7
== END 2020-04-03 16:25 | disposition home or self-care (01) ==
LOC: EC 14:23
DX: N39.0 Urinary tract infection, site not specified (principal); F03.90 Unspecified dementia, unspecified severity, without behavioral disturbance, psychotic disturbance, mood disturbance, and anxiety; Z98.890 Other specified postprocedural states; Z90.79 Acquired absence of other genital organ(s)
CPT/HCPCS: 36415; 80053; 81001; 85025; 87086; 99283

== ENCOUNTER → 2020-04-16 | Outpatient (CLI) | payer MEDICARE ==
--- NOTE | 2020-04-16 10:44 | US ---
EXAMINATION TYPE: US kidneys/renal and bladder DATE OF EXAM: 04/16/2020 COMPARISON: US, CT 2013. CLINICAL HISTORY: R31.0 hematuria. EXAM MEASUREMENTS: Right Kidney: 12.1 x 6.3 x 4.6 cm Left Kidney: 11.7 x 5.8 x 5.3 cm Post Void Residual Volume: patient was unable to void (bladder volume = 115.0ml Right Kidney: multiple renal cysts with largest simple cyst seen mid lateral pole = 5.5 x 6.1 x 5.4cm . Left Kidney: couple of renal cysts seen with larger =1.3 x 1.3 x 1.4cm Bladder: thickened bladder wall = 0.6cm , small bladder wall diverticula seen left mid wall Bilateral Jets seen: none seen after 3 minutes Normal Post Void Residual: pt. unable to void There is no evidence for hydronephrosis at this point in time. No nephrolithiasis is seen. Bladder poorly distended. Moderate wall thickening with small outpouching diverticula. Enlarged prost ate noted on 2014 CT. Findings likely on basis of chronic outlet obstruction. Some increased cortical echogenicity with thin-walled cysts in both kidneys. IMPRESSION: Evidence of chronic medical renal disease. No hydronephrosis seen bilaterally. Evidence o f chronic outlet obstruction related to BPH. Source of new hematuria not identified. Advise repeat CT urogram to further evaluate if symptoms persist.
== END | disposition home or self-care (01) ==
LOC: RADUSWWP 08:29
PROVIDERS: ATTEND Urology
DX: N40.1 Benign prostatic hyperplasia with lower urinary tract symptoms (principal); N13.8 Other obstructive and reflux uropathy; N18.9 Chronic kidney disease, unspecified
CPT/HCPCS: 76770